=== PATIENT | female | born 1990 | race Caucasian/White ===

== ENCOUNTER 2022-10-04 23:05 | Inpatient (IN) | payer SELFPAY ==
[2022-10-04 22:34] VITALS: BP 128/81; PULSE 100; TEMP 37
[2022-10-04 22:37] VITALS: BMI 31.8
[2022-10-04 23:04] LABS: ROM Internal Control Test YES-OK TO RESULT pt. (Internal QC); ROM Patient Test POSITIVE (Negative)
[2022-10-05] VITALS (37 sets, daily range): BP systolic 107–135; BP diastolic 57–86; PULSE 18–101; RESP 15–16; TEMP 36.4–37.1; O2SAT 82–100
[2022-10-05] MEDS: Lactated Ringers 1,000 ML 50 ML IV (00:10)
[2022-10-05 00:29] LABS: Mucous, Urine 0 SEEN /hpf (<or=2+)
[2022-10-05 00:29] LABS: Absolute Lymphocyte Count 2.58 X10^3/uL (0.83-4.51); Absolute Neutrophil Count 8.4 X10^3/uL (2.0-7.7); Basophil# 0.03 X10^3/uL; Basophil% 0.2 % (0-1); Eosinophil# 0.12 X10^3/uL; Hematocrit 37.3 % (37-47); Hemoglobin 12.9 g/dL (12.0-15.0); Lymphocyte # 2.58 X10^3/ul (0.83-4.51); Mean Corp Hgb Conc 34.6 g/dL (32-36); Mean Corpuscular Hgb 30.9 pg (27.0-32.0); Mean Corpuscular Volume 89.4 fL (81-99); Mean Platelet Vol. 10.1 fl (6.2-12.0); Monocyte# 1.15 X10^3/uL; Monocyte% 9.3 % (0-10); NRBC Flagged by Analyzer 0 % (0-5); Neutrophil # 8.37 X10^3/uL (2.7-7.7); Neutrophil % 68.1 % (47-70); Platelet Count 276 K/mm3 (150-450); RBC Distribution Width CV 12.6 % (11.6-14.6); RBC Distribution Width SD 41.1 fl (35.1-43.9); Red Blood Count 4.17 M/mm3 (4.2-5.4); White Blood Count 12.3 K/mm3 (4.4-11.0)
[2022-10-05 00:42] LABS: Color, Urine Yellow (Yellow); Glucose, Dipstick 100 mg/dl (Normal); Ketone-Dipstick Negative (Negative); Leukocyte Esterase-Dipstick Negative /ul (Negative); Nitrite-Dipstick Negative (Negative); Occult Blood-Urine 150 /ul (Negative); Protein-Dipstick 30 mg/dl (Negative); Urine Bilirubin Dipstick Negative (Negative); Urine Clarity Clear (Clear); Urine Urobilinogen Normal (Normal); Urine pH 6.5 (5.0 - 8.0)
[2022-10-05] MEDS: Betamethasone/Betamethasone 30 MG/5 ML Vial 12 MG IM (00:42)
[2022-10-05 00:44] LABS: Bacteria 1+ /hpf (None Seen); Red Blood Cells-Urine 0-5 SEEN /hpf (0-5); Squamous Epithelial Cells - UA 5-10 SEEN /hpf (5-10); White Blood Cells 0-5 SEEN /hpf (0-5)
[2022-10-05 00:46] LABS: Bedside Glucose 95 mg/dL (74-106)
[2022-10-05 00:52] LABS: Amphetamine Urine VISTA NEGATIVE (<1000 ng/mL); Barbiturate Urine VISTA NEGATIVE (< 200 ng/mL); Benzodiazepine Urine VISTA NEGATIVE (< 200 ng/mL); Cocaine Urine VISTA NEGATIVE (< 300 ng/mL); Ecstacy Urine VISTA NEGATIVE (< 500 ng/mL); Methadone Urine VISTA NEGATIVE (< 300 ng/mL); PCP Urine VISTA NEGATIVE (< 25 ng/mL); THC Urine VISTA NEGATIVE (< 50 ng/mL); Vista UDS pH Range 7
--- NOTE | 2022-10-05 01:22 | PCM.HP.BLA ---
History and Physical Date of Admission: 10/04/22 HPI: 32-year-old G1, P0 at 35/1 weeks, [facility] 11/06/2022, admitted for rupture of membranes. Spontaneous rupture membranes on 10/04/2022 at 1700. Reports movement. Reports irregular contractions. Denies vaginal bleeding. Denies headache or vision changes, chest pain or shortness of breath, nausea or vomiting, diarrhea or constipation, fevers or chills. complicated by: Possible gestational diabetes based on blood sugars that she had been controlling with diet. Did not have Glucola, but have been testing sugars for many weeks. Patient had echo for dilated right ventricle, echo was within normal limits in August 2022. 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 G1: Current Medical history: Denies Surgical history: Denies Medications: Vitamins Family history: Denies history of blood clots or bleeding disorders Allergies: No known drug allergies Social history: Denies tobacco, alcohol, drug use Physical exam BP 127/78, HR 89, Temp 98.4F, O2 Sat 95% RA General: No acute distress, comfortable in bed HEENT: Normal cephalic/atraumatic, PERRLA Cardiorespiratory: No increased effort Abdomen: Soft, nontender, gravid Extremities: Minimal edema Neurologic: Cranial nerves II through XII grossly intact, no focal deficits Musculoskeletal: Strength 5 out of 5 throughout extremities Cervical exam: 3 cm and 50% effaced per RN FHR: 145/mod emily/+accel/ nodecel Merritt: q5-7 labs pending Assessment/plan: 32-year-old G1, P0 at 35/1 weeks, [facility] 11/06/2022, admitted for rupture of membranes. complicated by: Possible gestational diabetes based on blood sugars that she had been controlling with diet. ?Possible gestational diabetes. Did not have Glucola, but have been testing sugars for many weeks. Will check blood sugars in labor. ?Patient had echo for dilated right ventricle, echo was within normal limits in August 2022. ?GBS pending. As patient is high risk under 37 weeks, will treat with penicillin. ?Celestone given. ?We will plan expectant management at this time. Will augment with Pitocin if needed.
[2022-10-05 01:40] LABS: Bedside Glucose 88 mg/dL (74-106)
[2022-10-05 01:57] LABS: Rubella IgG Reactive (Nonreactive); Syphilis Antibodies Non-reactive
[2022-10-05 02:04] LABS: Group B Strep DNA By PCR POSITIVE (Negative); Probe Check PASS
[2022-10-05 02:17] LABS: HIV - WCH Non-Reactive (Nonreactive); Hepatitis B Surface Antigen Non-Reactive (Nonreactive); Hepatitis C Antibody Non-Reactive (Nonreactive)
[2022-10-05 03:01] LABS: Bedside Glucose 101 mg/dL (74-106)
[2022-10-05] MEDS: Oxytocin 10 UNITS/ML Vial IM (03:59)
--- NOTE | 2022-10-05 04:08 | OP.PCM_ITS ---
Vaginal Delivery Operative Information Date of Procedure: 10/05/22 Pre-Operative Diagnosis: rupture of membranes, bar intrauterine Post-Operative Diagnosis: rupture of membranes, bar intrauterine Surgery / Procedure Performed: Spontaneous Vaginal Delivery Type of Anesthesia: None Estimated Blood Loss: 400cc Findings Description of Procedure: Spontaneous vaginal delivery of viable . No nuchal cord. Baby to mom. Cord clamped and cut. Baby to nursing and patient access specialist staff. Left labial laceration and left vaginal laceration repaired in usual fashion after injection with lidocaine. Hemostatic. Periurethral abrasion, hemostatic without intervention. Spontaneous delivery of placenta. Baby to special care nursery for CPAP. APGARS pending. Complication Complications: None
--- NOTE | 2022-10-05 04:40 | NURSING ---
this RN called dr floyd to see if pt should have a recovery blood glucose test. mariel states pt does not need BS taken during recovery period since all were WNL during labor. Mariel states she wants a fasting BS in AM on 10/06/22. this RN to pass that along to day shift RN who will be taking over care for mother.
[2022-10-05] MEDS: 0.9% Saline Lock 10 ML Syringe IV (05:00)
[2022-10-05 07:12] LABS: Chlamydia Trachomatis by PCR Negative (Negative); Neisserai gonorrhoeae by PCR Negative (Negative); Probe Check PASS; Sample Adequacy Control PASS; Specimen Processing Control PASS
[2022-10-06 03:00] VITALS: BP 98/66; PULSE 69; RESP 15; TEMP 36.1; O2SAT 98
[2022-10-06 06:21] LABS: Hematocrit 35.6 % (37-47); Hemoglobin 12.1 g/dL (12.0-15.0); Mean Corpuscular Hgb 31.3 pg (27.0-32.0); Platelet Count 275 K/mm3 (150-450); RBC Distribution Width CV 12.9 % (11.6-14.6); RBC Distribution Width SD 43.2 fl (35.1-43.9); Red Blood Count 3.87 M/mm3 (4.2-5.4); White Blood Count 22.9 K/mm3 (4.4-11.0)
--- NOTE | 2022-10-06 06:29 | PCM.PN.OB ---
Subjective Subjective No overnight complaints Objective Data Objective Data Vital Signs: Vital Signs Temp Pulse Resp BP Pulse Ox O2 Del Method 97.0 F L 69 15 98/66 98 Room Air 10/06/22 03:00 10/06/22 03:00 10/06/22 03:00 10/06/22 03:00 10/06/22 03:00 10/06/22 03:00 Oxygen Delivery Method Room Air Weight: 180 lb Body Mass Index (BMI) 31.8 Intake & Output: Intake and Output for Last 24 Hours 10/04/22 10/05/22 10/06/22 23:59 23:59 23:59 Intake Total 577.5 / 577.5 Output Total 3702 / 3702 Balance -3124.5 / -3124.5 Lab / Micro Data Result Diagrams: 10/06/22 06:10 Labs: Laboratory Results - last 24 hr 10/05/22 00:00: Chlam trachomat DNA PCR Negative, N.gonorrhoeae DNA (PCR) Negative 10/06/22 06:10: WBC 22.9 H, RBC 3.87 L, Hgb 12.1, Hct 35.6 L, MCV 92.0, MCH 31.3, MCHC 34.0, RDW Std Deviation 43.2, RDW Coeff of Boby 12.9, Plt Count 275, MPV 10.0 Physical Exam Const alert, oriented x3, no apparent distress, average body habitus, healthy appearing and well nourished HEENT normocephalic and moist oral mucous membranes Eyes PERRL Neck full ROM Extremity normal to inspection and full ROM Neuro moves all extremities and no focal motor deficits Psych mental status grossly normal, affect normal, speech normal and activity/motor behavior normal Assessment & Plan (1) Vaginal delivery: PLAN: day 1 status post 35-week vaginal delivery. Baby in special care. Breast-feeding. Pain well controlled. We will continue to monitor with possible hotel status tomorrow
[2022-10-06 06:36] LABS: Bedside Glucose 108 mg/dL (74-106)
[2022-10-06 08:45] VITALS: BP 102/72; PULSE 70; RESP 16; TEMP 36.4
[2022-10-06 13:30] VITALS: BP 129/85; PULSE 81; RESP 16; TEMP 36.8
--- NOTE | 2022-10-06 17:45 | NURSING ---
This RN taking over patient care at this time, report received by Iveth CAGLE.
[2022-10-06 20:00] VITALS: BP 122/81; PULSE 75; RESP 16; TEMP 36.7
--- NOTE | 2022-10-07 02:44 | DS.PCM_ITS ---
Discharge Summary Date of Admission: 10/05/22 Date of Discharge: 10/07/22 Summary: Patient arrived on 10/05/2022 with P PROM at 35 weeks. Subsequently delivered vaginally on 10/05/2022. Baby in special care. Mom with routine recovery. Discharged home on 10/07/2022 Meaningful Use Info Meaningful Use Diagnoses (Choose all that apply): None applicable Discharge Plan Admission Admit Date/Time: 10/04/22 23:05 Primary Reason for Your Visit: premature rupture of membranes Attending Provider: iPa Taveras Primary Care Provider: Kala Simental,Cecilia Primary Instructions Additional Instructions / Restrictions: Regular diet. Okay to shower. Weightbearing as tolerated. No intercourse for 4 to 6 weeks. Call if fevers, chills, chest pain, shortness of breath. Follow- up 4 to 6 weeks Discharge Orders/Prescriptions Prescriptions: No Action 1 mg Tablet 1 tab PO DAILY Referrals / Follow Up: Care Physician,No Primary [Primary Care Provider] - Disposition Disposition (needs filled in before D/C Order can be placed): Home, Self Care
--- NOTE | 2022-10-07 02:45 | PCM.PN.OB ---
Subjective Subjective No overnight complaints Objective Data Objective Data Vital Signs: Vital Signs Temp Pulse Resp BP Pulse Ox O2 Del Method 98.0 F 75 16 122/81 H 98 Room Air 10/06/22 20:00 10/06/22 20:00 10/06/22 20:00 10/06/22 20:00 10/06/22 03:00 10/06/22 13:30 Oxygen Delivery Method Room Air Weight: 180 lb Body Mass Index (BMI) 31.8 Intake & Output: Intake and Output for Last 24 Hours 10/05/22 10/06/22 10/07/22 23:59 23:59 23:59 Intake Total 577.5 / 577.5 Output Total 3702 / 3702 Balance -3124.5 / -3124.5 Lab / Micro Data Result Diagrams: 10/06/22 06:10 Labs: Laboratory Results - last 24 hr 10/06/22 06:03: POC Glucose 108 H 10/06/22 06:10: WBC 22.9 H, RBC 3.87 L, Hgb 12.1, Hct 35.6 L, MCV 92.0, MCH 31.3, MCHC 34.0, RDW Std Deviation 43.2, RDW Coeff of Boby 12.9, Plt Count 275, MPV 10.0 Physical Exam Const alert, oriented x3, no apparent distress, average body habitus, healthy appearing and well nourished HEENT normocephalic and moist oral mucous membranes Eyes PERRL Neck full ROM Resp normal respiratory effort and no retractions GI GI Narrative: Soft, nontender, uterus firm and below umbilicus Extremity normal to inspection and full ROM Neuro moves all extremities and no focal motor deficits Psych mental status grossly normal, affect normal, speech normal and activity/motor behavior normal Assessment & Plan (1) Vaginal delivery: PLAN: day 2 status post P PROM at 35 weeks. Baby in special care. Breast-feeding. Pain well controlled. Will discharge home to hotel status or if baby is discharged from special care will discharge home today
[2022-10-07 02:46] VITALS: BP 114/76; PULSE 81; RESP 16; TEMP 36.6
[2022-10-07 05:46] LABS: Absolute Lymphocyte Count 3.89 X10^3/uL (0.83-4.51); Absolute Neutrophil Count 8.6 X10^3/uL (2.0-7.7); Basophil# 0.07 X10^3/uL; Basophil% 0.5 % (0-1); Eosinophil# 0.18 X10^3/uL; Eosinophils% 1.3 % (0-5); Hematocrit 34.2 % (37-47); Hemoglobin 11.4 g/dL (12.0-15.0); Lymphocyte # 3.89 X10^3/ul (0.83-4.51); Lymphocyte % 27.5 % (19-41); Mean Corp Hgb Conc 33.3 g/dL (32-36); Mean Corpuscular Volume 92.9 fL (81-99); Mean Platelet Vol. 9.9 fl (6.2-12.0); Monocyte# 1.32 X10^3/uL; Monocyte% 9.3 % (0-10); NRBC Flagged by Analyzer 0 % (0-5); Neutrophil # 8.57 X10^3/uL (2.7-7.7); Neutrophil % 60.8 % (47-70); Platelet Count 266 K/mm3 (150-450); RBC Distribution Width CV 12.9 % (11.6-14.6); RBC Distribution Width SD 44.5 fl (35.1-43.9); Red Blood Count 3.68 M/mm3 (4.2-5.4); White Blood Count 14.1 K/mm3 (4.4-11.0)
[2022-10-07 08:25] VITALS: BP 112/69; PULSE 75; RESP 16; TEMP 36.8; O2SAT 98
== END 2022-10-07 09:15 | disposition home or self-care (01) | DRG 807 ==
LOC: WPOUT 23:06 → WP 23:06
PROVIDERS: Admitting Provider Student in an Organized Health Care Education/Training Program; Visit Provider Student in an Organized Health Care Education/Training Program
DX: O42.913 Preterm premature rupture of membranes, unspecified as to length of time between rupture and onset of labor, third trimester (principal); Z37.0 Single live birth; O24.420 Gestational diabetes mellitus in childbirth, diet controlled; O70.0 First degree perineal laceration during delivery; Z3A.35 35 weeks gestation of pregnancy
CPT/HCPCS: 59025; 59050; 80307; 81001; 82962; 84112; 85025; 85027; 86703; 86762; 86780; 86803; 86850; 86900; 86901; 87340; 87491; 87591; 87653; 99221; J7120; A4216; G0378; J0702